=== PATIENT | female | born 1985 | race Caucasian/White ===

== ENCOUNTER 2021-11-21 14:58 | Outpatient (CLI) | payer BC | END 2021-11-21 16:08 | disposition home or self-care (01) | LOC: GENOP 14:58 | DX: O98.513 Other viral diseases complicating pregnancy, third trimester (principal); U07.1 COVID-19; Z3A.34 34 weeks gestation of pregnancy; Z98.1 Arthrodesis status | CPT/HCPCS: 59025 ==

== ENCOUNTER 2021-12-05 18:01 | Outpatient (CLI) | payer BC ==
[2021-12-05 21:45] LABS: HEMOGLOBIN 12.6 gm/dl (12.3-15.3); RED BLOOD COUNT 4.14 M/UL (4.00-5.10); WHITE BLOOD COUNT 11.5 K/UL (4.5-11.0)
== END 2021-12-06 11:25 | disposition home or self-care (01) ==
LOC: GENOP 18:01
PROVIDERS: Obstetrics & Gynecology
DX: O41.03X0 Oligohydramnios, third trimester, not applicable or unspecified (principal); O24.410 Gestational diabetes mellitus in pregnancy, diet controlled; O10.913 Unspecified pre-existing hypertension complicating pregnancy, third trimester; Z3A.36 36 weeks gestation of pregnancy; Z98.890 Other specified postprocedural states; Z88.2 Allergy status to sulfonamides
CPT/HCPCS: 59025; 81001; 82247; 82248; 82565; 82570; 82962; 84156; 84450; 84460; 84550; 85025; 85379; 85384; 85610; 85730; 96365; 96366; 96374; J0360

== ENCOUNTER 2021-12-10 07:23 | Inpatient (IN) | payer BC ==
[~2021-12-10] VITALS: Ht 165.1 cm; Wt 104.8 kg
[2021-12-10 08:31] LABS: RED BLOOD COUNT 4.21 M/UL (4.00-5.10); WHITE BLOOD COUNT 8.9 K/UL (4.5-11.0)
[2021-12-10] MEDS ORDERED: PRENATAL VITAM1 EAC3 PO (09:23)
[2021-12-10] MEDS ORDERED: IBUPROFEN800 MG PO (11:16)
[2021-12-10] MEDS ORDERED: COLACE 100MG C100 MG PO (11:16)
[2021-12-10] MEDS ORDERED: HYDROCODON-ACE1 EAC4 PO (11:16)
[2021-12-10] MEDS ORDERED: HYDROCODON-ACE1 EAC2 PO (11:20)
[2021-12-11 06:22] LABS: HEMOGLOBIN 11.9 gm/dl (12.3-15.3)
== END 2021-12-12 13:20 | disposition home or self-care (01) | DRG 787 ==
LOC: OB 07:23
PROVIDERS: ADMIT Obstetrics & Gynecology
PROC: 3E0234Z Introduction of Serum, Toxoid and Vaccine into Muscle, Percutaneous Approach (ICD-10-PCS; 2021-12-10)
PROC: 3E02340 Introduction of Influenza Vaccine into Muscle, Percutaneous Approach (ICD-10-PCS; 2021-12-10)
PROC: 4A1HXCZ Monitoring of Products of Conception, Cardiac Rate, External Approach (ICD-10-PCS; 2021-12-10)
PROC: 10D00Z1 Extraction of Products of Conception, Low, Open Approach (ICD-10-PCS; principal; 2021-12-10 09:52)
DX: O10.92 Unspecified pre-existing hypertension complicating childbirth (principal); O41.03X0 Oligohydramnios, third trimester, not applicable or unspecified; Z3A.37 37 weeks gestation of pregnancy; Z37.0 Single live birth; Z20.822 Contact with and (suspected) exposure to COVID-19; Z98.890 Other specified postprocedural states; O24.420 Gestational diabetes mellitus in childbirth, diet controlled; Z88.2 Allergy status to sulfonamides; Z88.8 Allergy status to other drugs, medicaments and biological substances; Z23 Encounter for immunization
CPT/HCPCS: 36415; 81001; 82800; 82962; 85014; 85018; 85025; 90686; 90715; C9113; J0690; J1200; J1885; J2274; J2370; J2405; J2590; J3010; J7120